=== PATIENT | male | born 1975 | race Caucasian/White ===

== ENCOUNTER 2020-07-23 22:29 | Emergency (ER) | payer MEDICARE, OTHER ==
[~2020-07-23] VITALS: Ht 182.9 cm; Wt 97.5 kg
--- NOTE | 2020-07-23 23:00 | NUR ---
Patient arrived at the ER with c/o lower back pain radiating to bilateral lower extremity that started 5 days ago. Denies any trauma.
--- NOTE | 2020-07-23 23:09 | NUR ---
Dr. Valle on bedside for MSE.
[2020-07-23] MEDS ORDERED: IBUPROFEN 800 MG TABLET PO ONE (23:15)
[2020-07-23] MEDS ORDERED: IBUP-1958 PO (23:18)
[2020-07-23] MEDS ORDERED: LIDO30AD10 TD (23:18)
[2020-07-23] MEDS ORDERED: IBUPROFEN 800 MG TABLET ONE (23:22)
--- NOTE | 2020-07-23 23:27 | NUR ---
Patient discharged to home in stable condition. Written and verbal after care instructions given. Patient verbalizes understanding of instructions. Stressed follow up or return to ER for worsening s/s. Patient ambulated fr the ER with steady gait. All belongings with patient.
[2020-07-23 23:28] VITALS: BP 140/66
== END 2020-07-23 23:29 | disposition home or self-care (01) ==
LOC: ER 22:39
DX: M54.41 Lumbago with sciatica, right side (principal); Z59.0 Homelessness
CPT/HCPCS: A4663